=== PATIENT | female | born 1975 | race Caucasian/White ===

== ENCOUNTER → 2019-03-07 | Outpatient (CLI) | payer OTHER | LOC: MRI 14:13 | DX: M47.816 Spondylosis without myelopathy or radiculopathy, lumbar region (principal); M12.88 Other specific arthropathies, not elsewhere classified, other specified site; M51.36 Other intervertebral disc degeneration, lumbar region; M51.26 Other intervertebral disc displacement, lumbar region; M48.061 Spinal stenosis, lumbar region without neurogenic claudication; M48.07 Spinal stenosis, lumbosacral region ==